=== PATIENT | male | born 1985 | race Caucasian/White ===

== ENCOUNTER 2016-12-23 03:31 | Emergency (ER) | payer OTHER ==
[~2016-12-23] VITALS: Ht 180.3 cm; Wt 69.2 kg
[~2016-12-23 03:31] MED LIST: EFFEXOR75 MG PO; LIBRIUM25 MG PO; NALTREXONE HCL50 MG PO; ZOFRAN ODT4 MG PO
[2016-12-23] MEDS ORDERED: LIBRIUM25 MG PO (04:05)
[2016-12-23] MEDS ORDERED: ZOFRAN ODT4 MG PO (04:05)
[2016-12-23 04:22] VITALS: BP 129/92
== END 2016-12-23 04:30 | disposition home or self-care (01) ==
LOC: EME 03:31
DX: F10.239 Alcohol dependence with withdrawal, unspecified (principal); F17.200 Nicotine dependence, unspecified, uncomplicated
CPT/HCPCS: 99281; 99284